=== PATIENT | male | born 1955 | race Caucasian/White ===

== ENCOUNTER 2016-07-15 10:49 | Inpatient (IN) | payer MEDICARE ==
[~2016-07-15] VITALS: Ht 176.5 cm; Wt 121.0 kg
[~2016-07-15 10:49] MED LIST: BUPR1TAB70 PO; GABA300C5 PO; GLIP5TAB8 PO; HYDR-3580 PO; NAPR220T95 PO; NOVOLOGP2 SQ; NOVONP2 SQ; OMEP20TA PO
[2016-07-16] MEDS ORDERED: INSULIN HUMAN REGULAR 1,000 UNITS/10 ML VIAL SQ PRN (05:45)
[2016-07-16] MEDS ORDERED: ONDANSETRON HCL 4 MG/2 ML VIAL IV PUSH SCH (05:45)
[2016-07-16] MEDS ORDERED: METOPROLOL TARTRATE 25 MG TAB PO PRN (05:45)
[2016-07-16] MEDS ORDERED: APREPITANT 40 MG CAP PO SCH (05:45)
[2016-07-16] MEDS ORDERED: ACETAMINOPHEN 1000 MG/100 ML VIAL IV SCH (05:45)
[2016-07-16] MEDS ORDERED: SCOPOLAMINE 1.5 MG PATCH T-DERMAL SCH (05:45)
[2016-07-16 05:57] VITALS: BP 142/89; PULSE 81; RESP 20; TEMP 97.9; O2SAT 95
[2016-07-16] MEDS ORDERED: VANCOMYCIN 1,250 MG/NS 250 ML (for 70-84 kg) IV SCH ×2 (06:00)
[2016-07-16] MEDS ORDERED: metroNIDAZOLE 500 MG INJ 100 ML IV SCH (06:00)
[2016-07-16] MEDS ORDERED: BUPIVACAINE/EPINEPHRINE 0.25% PF 30 ML VIAL ONE (06:57)
[2016-07-16] MEDS ORDERED: METHYLENE BLUE 10 MG/ML VIAL ONE (06:58)
[2016-07-16] MEDS ORDERED: fentaNYL CITRATE 250 MCG/5 ML AMP ONE (07:17)
[2016-07-16] MEDS ORDERED: MIDAZOLAM HCL 2 MG/2 ML VIAL ONE (07:17)
[2016-07-16] MEDS ORDERED: FAMOTIDINE 20 MG/2 ML VIAL ONE (07:17)
[2016-07-16] MEDS ORDERED: HYDROmorphone HCL PF 2 MG/ML VIAL ONE (07:18)
[2016-07-16] MEDS ORDERED: LACTATED RINGER'S 1000 ML IV SCH (07:30)
[2016-07-16] MEDS ORDERED: SODIUM CHLORID 0.9% 500 ML IV SCH (07:30)
[2016-07-16] MEDS ORDERED: DICLOFENAC SODIUM 37.5 MG/ML VIAL IV PUSH ONE (08:55)
[2016-07-16] MEDS ORDERED: ACETAMINOPHEN 325MG/HYDROcodone 7.5MG/15ML UDC PO PRN (10:30)
[2016-07-16] MEDS ORDERED: SODIUM CHLORIDE 0.9% FLUSH 5 ML FLUSH IVF PRN (10:30)
[2016-07-16] MEDS ORDERED: GLUCAGON 1 MG/ML VIAL OTHER PRN (10:30)
[2016-07-16] MEDS ORDERED: DEXTROSE 50% IN WATER 50 ML VIAL(D50) IV PUSH PRN (10:30)
[2016-07-16] MEDS ORDERED: NALOXONE HCL 0.4 MG/ML AMP IV PRN (10:30)
[2016-07-16] MEDS ORDERED: ONDANSETRON HCL 4 MG/2 ML VIAL IV PRN ×2 (10:30)
[2016-07-16] MEDS ORDERED: diphenhydrAMINE HCL 50 MG/ML VIAL IV PRN (10:30)
[2016-07-16] MEDS ORDERED: ENALAPRILAT 1.25 MG/ML VIAL IV PUSH PRN (10:30)
[2016-07-16] MEDS ORDERED: diphenhydrAMINE HCL ELIXIR 12.5 MG/5 ML CUP PO PRN (10:30)
[2016-07-16] MEDS ORDERED: Post-op Orders (for Pharmacy) MISC XX ONE (10:47)
[2016-07-16] MEDS ORDERED: DO NOT ADM ANY ANTICOAGULANT DRUGS XX PRN (11:00)
[2016-07-16] MEDS: 1/2 NS + KCL 20 MEQ INJ 1,000 ML IV SCH ×4 (11:25→23:07)
[2016-07-16] MEDS: INSULIN NovoLIN REGULAR SUPPLEMENTAL SCALE SQ SCH ×2 (11:40→20:40)
[2016-07-16] MEDS: RESP: ALBUTEROL 2.5 MG/3 ML NEB (SCH) INH ×2 (11:40→21:26)
[2016-07-16] MEDS: METOCLOPRAMIDE HCL 10 MG/2 ML VIAL IVS SCH ×3 (11:41→23:07)
[2016-07-16] MEDS: MORPHINE SULFATE 30 MG/30 ML PCA IV SCH (11:53)
[2016-07-16] MEDS ORDERED: ONDANSETRON HCL 4 MG/2 ML VIAL IV PUSH ONE (12:00)
[2016-07-16] MEDS ORDERED: PROPOFOL 200 MG/20 ML AMP IV ONE (12:00)
[2016-07-16] MEDS ORDERED: NEOSTIGMINE 3 MG/3 ML SYR IV ONE (12:00)
[2016-07-16] MEDS ORDERED: ACETAMINOPHEN 1000 MG/100 ML VIAL IV PRN (12:00)
[2016-07-16] MEDS ORDERED: LACTATED RINGER'S 1000 ML INJ 1,000 ML IV ONE (12:00)
[2016-07-16] MEDS: metroNIDAZOLE 500 MG INJ 100 ML IV SCH ×2 (15:00→23:07)
[2016-07-16] MEDS: ENOXAPARIN SODIUM 40 MG/0.4 ML SYRINGE SQ SCH (15:00)
[2016-07-16 15:30] VITALS: BP 133/87; PULSE 91; RESP 17; TEMP 96.7; O2SAT 93
[2016-07-16] MEDS: VANCOMYCIN INJ 1,000 MG in SODIUM CHLOR 0.9% 250 ML INJ 250 ML IV SCH (18:04)
[2016-07-16 20:00] VITALS: BP 128/83; PULSE 89; RESP 18; TEMP 98.5; O2SAT 91
[2016-07-16] MEDS: SODIUM CHLORIDE 0.9% FLUSH 5 ML FLUSH IVF SCH (20:39)
[2016-07-16] MEDS: PCA - TOTAL MG MORPHINE DELIVERED PER SHIFT SCH (20:40)
[2016-07-16 21:26] VITALS: O2SAT 95
[2016-07-16 23:32] VITALS: BP 147/67; PULSE 90; RESP 20; TEMP 98.7; O2SAT 91
[2016-07-17] VITALS (8 sets, daily range): BP systolic 132–162; BP diastolic 62–89; PULSE 90–106; RESP 17–19; TEMP 96.9–100; O2SAT 90–95
[2016-07-17] MEDS: RESP: ALBUTEROL 2.5 MG/3 ML NEB (SCH) INH ×6 (00:30→20:56)
[2016-07-17] MEDS: 1/2 NS + KCL 20 MEQ INJ 1,000 ML IV SCH ×4 (02:21→20:16)
[2016-07-17] MEDS: MORPHINE SULFATE 30 MG/30 ML PCA IV SCH (04:00)
[2016-07-17] MEDS: METOCLOPRAMIDE HCL 10 MG/2 ML VIAL IVS SCH (04:57)
[2016-07-17] MEDS: PCA - TOTAL MG MORPHINE DELIVERED PER SHIFT SCH ×3 (04:57→20:17)
[2016-07-17] MEDS: metroNIDAZOLE 500 MG INJ 100 ML IV SCH (05:21)
[2016-07-17 05:55] LABS: BASOPHIL % 0.3 % (0.0-2.0); EOSINOPHIL % 0.5 % (0.0-4.0); HEMO FLAGS DIFF FINAL; LYMPH % 12.9 % (9.0-44.0); LYMPHOCYTE # 1.2 TH/MM3 (1.0-4.8); MEAN CELL VOLUME 81.6 FL (80.0-100.0); MEAN CORPUSCULAR HEMOGLOBIN 27.4 PG (27.0-34.0); MEAN CORPUSCULAR HGB CONC 33.6 % (32.0-36.0); NEUT % 76.3 % (16.0-70.0); PLATELET COUNT 169 TH/MM3 (150-450); RED BLOOD COUNT 4.77 MIL/MM3 (4.50-5.90); RED CELL DISTRIBUTION WIDTH 15.4 % (11.6-17.2); WHITE BLOOD COUNT 9.1 TH/MM3 (4.0-11.0)
[2016-07-17 06:07] LABS: BICARBONATE 25.1 MEQ/L (21.0-32.0); MAGNESIUM 1.8 MG/DL (1.5-2.5); POTASSIUM 3.9 MEQ/L (3.5-5.1)
[2016-07-17] MEDS: VANCOMYCIN INJ 1,000 MG in SODIUM CHLOR 0.9% 250 ML INJ 250 ML IV SCH (06:09)
[2016-07-17] MEDS: INSULIN NovoLIN REGULAR SUPPLEMENTAL SCALE SQ SCH ×4 (06:09→21:51)
[2016-07-17] MEDS: ACETAMINOPHEN 325MG/HYDROcodone 7.5MG/15ML UDC PO PRN ×3 (08:29→20:17)
[2016-07-17] MEDS: PANTOPRAZOLE SOD 40 MG DELAYED RELEASE TAB PO SCH (08:29)
[2016-07-17] MEDS: buPROPion HCL 100 MG SUSTAINED RELEASE TAB PO SCH (08:29)
[2016-07-17] MEDS: PANTOPRAZOLE SODIUM 40 MG VIAL IVP SCH (08:31)
[2016-07-17] MEDS: SODIUM CHLORIDE 0.9% FLUSH 5 ML FLUSH IVF SCH ×2 (08:31→20:16)
[2016-07-17] MEDS ORDERED: PNEUMOCOCCAL POLYVALENT INJ 25 MCG/0.5 ML SYR IM ONE (09:00)
[2016-07-17] MEDS ORDERED: METOCLOPRAMIDE HCL 10 MG/2 ML VIAL IVS PRN (11:00)
[2016-07-17] MEDS: ENOXAPARIN SODIUM 40 MG/0.4 ML SYRINGE SQ SCH (13:29)
--- NOTE | 2016-07-17 15:19 | HHI.PR ---
Subjective Subjective Notes pt comfortable no cp no sob Objective Vitals/I&O Vital Signs Date Time Temp Pulse Resp B/P Pulse Ox O2 Delivery O2 Flow Rate FiO2 07/17/16 12:00 96.9 106 17 162/89 94 07/17/16 07:35 21 07/16/16 14:30 Nasal Cannula 3 Labs Laboratory Tests Test 07/17/16 05:30 White Blood Count 9.1 Red Blood Count 4.77 Hemoglobin 13.1 Hematocrit 39.0 Mean Corpuscular Volume 81.6 Mean Corpuscular Hemoglobin 27.4 Mean Corpuscular Hemoglobin 33.6 Concent Red Cell Distribution Width 15.4 Platelet Count 169 Mean Platelet Volume 7.5 Neutrophils (%) (Auto) 76.3 Lymphocytes (%) (Auto) 12.9 Monocytes (%) (Auto) 10.0 Eosinophils (%) (Auto) 0.5 Basophils (%) (Auto) 0.3 Neutrophils # (Auto) 7.0 Lymphocytes # (Auto) 1.2 Monocytes # (Auto) 0.9 Eosinophils # (Auto) 0.0 Basophils # (Auto) 0.0 CBC Comment DIFF FINAL Differential Comment Sodium Level 141 Potassium Level 3.9 Chloride Level 107 Carbon Dioxide Level 25.1 Anion Gap 9 Blood Urea Nitrogen 10 Creatinine 1.02 Estimat Glomerular Filtration 75 Rate Random Glucose 179 Calcium Level 8.4 Magnesium Level 1.8 Abdomen: Post-op tenderness Extremities: Perfused Wound Wound : Wound Location: Abdomen Appearance: Clean & Dry A/P Assessment and Plan S/P lap RYGBP doing well follow protocol Javon Collins MD Jul 17, 2016 15:19
[2016-07-18] VITALS: BP 156/74; PULSE 93; RESP 19; TEMP 97.2; O2SAT 92
[2016-07-18] MEDS: RESP: ALBUTEROL 2.5 MG/3 ML NEB (SCH) INH ×3 (00:17→08:39)
[2016-07-18] MEDS: ACETAMINOPHEN 325MG/HYDROcodone 7.5MG/15ML UDC PO PRN ×2 (02:18→08:43)
[2016-07-18] MEDS: 1/2 NS + KCL 20 MEQ INJ 1,000 ML IV SCH ×3 (02:25→08:44)
[2016-07-18] MEDS: PCA - TOTAL MG MORPHINE DELIVERED PER SHIFT SCH (04:42)
[2016-07-18] MEDS: INSULIN NovoLIN REGULAR SUPPLEMENTAL SCALE SQ SCH ×2 (06:29→11:12)
[2016-07-18 08:00] VITALS: BP 118/62; PULSE 85; RESP 20; TEMP 98.4; O2SAT 93
[2016-07-18 08:41] VITALS: O2SAT 93
[2016-07-18] MEDS: PANTOPRAZOLE SODIUM 40 MG VIAL IVP SCH (08:43)
[2016-07-18] MEDS: buPROPion HCL 100 MG SUSTAINED RELEASE TAB PO SCH (08:43)
[2016-07-18] MEDS: PANTOPRAZOLE SOD 40 MG DELAYED RELEASE TAB PO SCH (08:43)
[2016-07-18] MEDS: SODIUM CHLORIDE 0.9% FLUSH 5 ML FLUSH IVF SCH (08:44)
--- NOTE | 2016-07-18 11:52 | HHI.PR ---
Subjective Subjective Notes pt c/o abd pain no cp no sob no N/V Objective Vitals/I&O Vital Signs Date Time Temp Pulse Resp B/P Pulse Ox O2 Delivery O2 Flow Rate FiO2 07/18/16 08:41 93 21 07/18/16 08:00 98.4 85 20 118/62 07/16/16 14:30 Nasal Cannula 3 Abdomen: Post-op tenderness Extremities: Perfused Narrative Exam mild distension Wound Wound : Wound Location: Abdomen Appearance: Clean & Dry A/P Assessment and Plan S/P lap RYGBP POD #2 Normal post op changes D/C home medium sliding scale at home Javon Collins MD Jul 18, 2016 11:52
[2016-07-18] MEDS ORDERED: HYDR1SOL3 PO (11:56)
[2016-07-18] MEDS ORDERED: ZOFR4TAB3 SL (11:58)
--- NOTE | 2016-07-18 12:12 | MP ---
cc: EMPERATRIZ COLLINS DATE OF SURGERY: 07/16/2016 DATE OF : 1955 PREOPERATIVE DIAGNOSIS Severe obesity, BMI 39, complicated by type 2 diabetes. POSTOPERATIVE DIAGNOSIS Severe obesity, BMI 39, complicated by type 2 diabetes. Hiatal hernia. PROCEDURE Laparoscopic Earnestine-en-Y gastric bypass, 100-cm Earnestine limb, antegastric antecolic. Laparoscopic hiatal hernia repair. SURGEON Emperatriz Collins MD ECHOCARDIOGRAPH TECH: Jc Lee MD. Dr. Lee was necessary for assistance during this procedure, due to the complexity of the operation. He was necessary for manipulation and handling of the bowels during the procedure. He was present during the entire procedure. The ophthalmic surgical assistant during this operation was used to handle the camera. ANESTHESIA General endotracheal anesthesia. ESTIMATED BLOOD LOSS Scant. FINDINGS Moderate sized hiatal hernia. Fatty liver. SPECIMENS None. COMPLICATIONS None. OPERATION The patient was brought to the operating room and placed on the operating table in supine position, bilateral sequential inflation device placed on lower extremities, general anesthesia instituted, antibiotics initiated. The abdomen was prepped and draped sterilely. A poin 18-cm distal to the xiphoid in the midline anesthetized with 0.25% Marcaine with epinephrine. The skin incision was made, a 5-mm OptiView port placed under direct vision and pneumoperitoneum was created. Under direct vision a 5-mm left upper quadrant, 12-mm left upper quadrant, 12-mm right upper quadrant and 5-mm right upper quadrant ports were placed. Prior to placement of all ports, the skin and peritoneum were anesthetized with 0.25% Marcaine with epinephrine. The patient's omentum was lifted into the upper abdomen. It was split down the middle to create a path for the Earnestine limb. The ligament of Treitz was identified, a point 40 cm distal identified. The small bowel was divided in this region using an [place] Flex stapler vascular load reinforced with SeamGuard. The distal segment was brought up for a distance of 100 cm, enterotomy created in this region, enterotomy in the biliopancreatic limb and a [id number] stapled jejunojejunostomy created in the usual manner. The mesenteric defect at the jejunojejunostomy was closed with 2-0 Surgidac suture in a running manner. The patient was placed in reverse Trendelenburg position with the left side up. The [place]-Flex retractor was placed. The left lobe of the liver was retracted. The angle of His was taken down bluntly, the hiatus was dissected, during the dissection hiatal hernia was identified. The left and right crura of the diaphragm was dissected posteriorly as well as anteriorly.The crura of the diaphragm was approximated with 0 silk suture in a [id number]-rx-[id number] manner. Two interrupted stitches were placed posteriorly. The crura came together well without tension. A point 5 cm distal to the GE junction along the lesser curve identified, the lesser sac entered using blunt dissection. The stomach was partitioned horizontally using an [employer] stapler blue load, an additional firing taken directed towards the angle of His to completely divide the stomach. A gastrotomy created in the new stomach, enterotomy in the Earnestine limb and gastrojejunostomy created, stomal opening of 2 cm. An 18-German OG tube was placed across the anastomosis, the defect then closed in two layers of running 2-0 Vicryl. Prior to placement of the second layer, methylene blue instilled through the OG tube. There was no evidence of extravasation. Evicel was then placed over the gastrojejunostomy, jejunojejunostomy and all staple lines. The operative field inspected and hemostasis was present. The CO2 was released, all ports were removed. All skin incisions were closed with 4-0 Monocryl. The abdominal wall was cleaned and a sterile dressing placed. The patient was awakened and taken to the recovery room. MD AKOSUA Bennett/marilia /11:10 AM /11:42 AM DEISY
== END 2016-07-18 12:32 | disposition home or self-care (01) | DRG 621 ==
LOC: HSDI 07-16 05:07 → N07A 07-16 14:47
PROVIDERS: ADMIT Surgery; ATTEND Surgery
PROC: 0BQS4ZZ (ICD-10-PCS; 2016-07-16)
PROC: 0BQR4ZZ (ICD-10-PCS; 2016-07-16)
PROC: 0D164ZA Bypass Stomach to Jejunum, Percutaneous Endoscopic Approach (ICD-10-PCS; principal; 2016-07-16 07:33)
DX: E66.01 Morbid (severe) obesity due to excess calories (principal); K76.0 Fatty (change of) liver, not elsewhere classified; K44.9 Diaphragmatic hernia without obstruction or gangrene; Z68.39 Body mass index [BMI] 39.0-39.9, adult; E11.9 Type 2 diabetes mellitus without complications
CPT/HCPCS: 80048; 82948; 83735; 85025; 90732; 94150; 94640; 94664; J0131; J1130; J1170; J1650; J2250; J2270; J2405; J2710; J2765; J3010; J3370; J7050; J7120; J7613; J8501